=== PATIENT | female | born 1990 | race Caucasian/White ===

== ENCOUNTER 2016-09-06 07:10 | Emergency (ER) | payer OTHER ==
[~2016-09-06] VITALS: Ht 152.4 cm; Wt 60.4 kg
[2016-09-06 07:20] VITALS: BP 120/64
--- NOTE | 2016-09-06 07:27 | NUR ---
PT AMBULATED TO BED 6.
--- NOTE | 2016-09-06 07:30 | NUR ---
PATIENT PRESENTS TO ED WITH LOWER ABD PAIN FOR 2 DAYS. AAOX4 WITH EVEN AND STEADY GAIT; LUNGS CLEAR BL; HR EVEN AND REGULAR; PT DENIES ANY FEVER, CP, SOB, OR COUGH AT THIS TIME; PATIENT STATES PAIN OF 7/10 AT THIS TIME; VSS; PATIENT POSITIONED FOR COMFORT; HOB ELEVATED; BEDRAILS UP X2; BED DOWN. ER MD MADE AWARE OF PT STATUS.
[2016-09-06 07:35] LABS: BASOPHILS # (AUTO) 0.1 K/uL (0.00-0.22); EOSINOPHILS # (AUTO) 0.2 K/uL (0-0.4); EOSINOPHILS % (AUTO) 1.6 % (0.0-4.0); HEMATOCRIT 41.1 % (36-48); HEMOGLOBIN 13.6 g/dL (12.0-16.0); LYMPHOCYTES # (AUTO) 1.7 K/uL (2.5-16.5); LYMPHOCYTES % (AUTO) 15.2 % (20.5-51.1); MEAN CORPUSCULAR HEMOGLOBIN 27 pg (27-31); MEAN CORPUSCULAR HGB CONC 33 g/dL (33-37); MEAN CORPUSCULAR VOLUME 81 fL (80-94); MONOCYTES # (AUTO) 0.4 K/uL (0.8-1.0); MONOCYTES % (AUTO) 3.7 % (1.7-9.3); NEUTROPHILS # (AUTO) 8.7 K/uL (1.8-7.7); NEUTROPHILS % (AUTO) 78.5 % (42.2-75.2); PLATELET COUNT (AUTO) 213 K/uL (140-450); RED BLOOD CELL COUNT(AUTO) 5.09 MIL/uL (4.20-5.40); RED CELL DISTRIBUTION WIDTH 12.1 % (11.6-13.7); WHITE BLOOD COUNT (AUTO) 11.1 K/uL (4.8-10.8)
[2016-09-06 07:40] LABS: BILIRUBIN,URINE 1+ (NEGATIVE); BLOOD, URINE 3+ (NEGATIVE); LEUKOCYTE ESTERASE ,URINE 2+ (NEGATIVE); NITRITE, URINE POSITIVE (NEGATIVE); PROTEIN,URINE 2+ (NEGATIVE); UGLUCOSE NEGATIVE (NEGATIVE); UROBILINOGEN,URINE 0.2 EU/dL (0.2 - 1)
[2016-09-06 07:48] LABS: CALCIUM 8.5 mg/dL (8.5-10.1); CARBON DIOXIDE 27.2 mmol/L (21-32); CREATININE 0.7 mg/dL (0.6-1.3); POTASSIUM 4.2 mmol/L (3.5-5.1)
[2016-09-06 07:53] LABS: ALBUMIN 3.9 g/dL (3.4-5.0); TOTAL BILIRUBIN 0.5 mg/dL (0.0-1.0); TOTAL PROTEIN, SERUM 7.6 g/dL (6.4-8.2)
[2016-09-06 08:07] LABS: COLOR,URINE STRAW (YELLOW)
[2016-09-06 08:08] LABS: APPEARANCE,URINE HAZY (CLEAR)
[2016-09-06 08:21] LABS: ICTOTEST NEGATIVE (NEGATIVE)
[2016-09-06 08:23] LABS: RBC,URINE 80-100 /HPF (0-5)
[2016-09-06 08:24] LABS: BACTERIA,URINE 1+ /HPF (None Seen); SQUAMOUS EPITHELIAL CELL,UR 0-3 (FEW) /LPF (0-3 (FEW))
[2016-09-06 08:25] VITALS: BP 125/70
--- NOTE | 2016-09-06 08:29 | NUR ---
Patient discharged with v/s stable. Written and verbal after care instructions given and explained. Patient alert, oriented and verbalized understanding of instructions. Ambulatory with steady gait. All questions addressed prior to discharge. ID band removed. Patient advised to follow up with PMD. Rx of PHENAZOPYRIDINE HYDROCHLORIDE AND CIPROFLOXACIN given. Patient educated on indication of medication including possible reaction and side effects. Opportunity to ask questions provided and answered.
== END 2016-09-06 08:29 | disposition home or self-care (01) ==
LOC: MED 07:10
DX: N39.0 Urinary tract infection, site not specified (principal); Z88.0 Allergy status to penicillin
CPT/HCPCS: 36415; 80053; 81001; 81025; 82150; 83690; 84703; 85025; 87086; 87186; 99284

== ENCOUNTER 2023-10-04 19:25 | Emergency (ER) | payer OTHER ==
[~2023-10-04] VITALS: Ht 162.6 cm; Wt 65.8 kg
[2023-10-04 19:26] VITALS: BP 123/63; PULSE 94; RESP 14; TEMP 97.6; O2SAT 99
[2023-10-04] MEDS: IBUPROFEN 600 MG TAB PO ONE (20:19)
[2023-10-04] MEDS: ACETAMINOPHEN EXTRA STRENGTH 500 MG TAB PO ONE (20:19)
[2023-10-04] MEDS: LIDOCAINE MPF 1% 10 MG/ML VIAL INJ ONE (20:42)
[2023-10-04] MEDS ORDERED: BACI-418 TP (21:07)
[2023-10-04 21:35] VITALS: BP 119/71; PULSE 90; RESP 18; TEMP 98; O2SAT 98
== END 2023-10-04 21:35 | disposition home or self-care (01) ==
LOC: MED 19:25
DX: S61.011A Laceration without foreign body of right thumb without damage to nail, initial encounter (principal); Z79.899 Other long term (current) drug therapy; Z88.0 Allergy status to penicillin; W25.XXXA Contact with sharp glass, initial encounter; Y93.89 Activity, other specified; Y92.89 Other specified places as the place of occurrence of the external cause; Y99.8 Other external cause status
CPT/HCPCS: 12001; 73140; 90471; 90715; 99283; J2001

== ENCOUNTER 2023-10-06 07:29 | Emergency (ER) | payer OTHER ==
[~2023-10-06] VITALS: Ht 149.9 cm; Wt 64.9 kg
[~2023-10-06 07:29] MED LIST: BACI-418 TP
[2023-10-06 07:40] VITALS: BP 114/48; PULSE 67; RESP 20; TEMP 97.7; O2SAT 97
[2023-10-06 08:36] VITALS: BP 114/48; PULSE 67; RESP 20; TEMP 97.7; O2SAT 97
== END 2023-10-06 08:36 | disposition home or self-care (01) ==
LOC: MED 07:29
DX: S61.011D Laceration without foreign body of right thumb without damage to nail, subsequent encounter (principal); Z79.899 Other long term (current) drug therapy; Z88.0 Allergy status to penicillin; X58.XXXD Exposure to other specified factors, subsequent encounter
CPT/HCPCS: 99281; 99283

== ENCOUNTER 2023-10-14 07:57 | Emergency (ER) | payer OTHER ==
[~2023-10-14] VITALS: Ht 149.9 cm; Wt 65.0 kg
[2023-10-14 08:06] VITALS: BP 102/51; PULSE 73; RESP 18; TEMP 97; O2SAT 99
[2023-10-14 09:09] VITALS: BP 102/51; PULSE 73; RESP 18; TEMP 97; O2SAT 99
== END 2023-10-14 09:09 | disposition home or self-care (01) ==
LOC: MED 07:57
DX: S61.011D Laceration without foreign body of right thumb without damage to nail, subsequent encounter (principal); Z48.02 Encounter for removal of sutures; Z79.899 Other long term (current) drug therapy; Z88.0 Allergy status to penicillin; W25.XXXD Contact with sharp glass, subsequent encounter
CPT/HCPCS: 99281